=== PATIENT | female | born 1950 | race Caucasian/White ===

== ENCOUNTER → 2019-04-04 | Outpatient (CLI) | payer OTHER, MEDICARE | LOC: BMCIMAGING 13:20 | PROVIDERS: ATTEND Physician Assistant Medical | DX: R22.1 Localized swelling, mass and lump, neck (principal) ==

== ENCOUNTER → 2019-04-08 | Outpatient (CLI) | payer OTHER, MEDICARE ==
[~2019-04-08] MED LIST: IOPAMIDOL (ISOVUE-300) 100 ML BTL ONE
== END ==
LOC: FIMAGING 10:26
PROVIDERS: ATTEND Physician Assistant Medical
DX: K21.9 Gastro-esophageal reflux disease without esophagitis (principal); R22.1 Localized swelling, mass and lump, neck; J43.2 Centrilobular emphysema
CPT/HCPCS: 70487; 70491; Q9967; 82565-PO

== ENCOUNTER → 2019-05-11 | Outpatient (CLI) | payer OTHER, MEDICARE | LOC: FIMAGING 07:32 ==

== ENCOUNTER 2019-05-16 11:07 | Observation (INO) | payer OTHER, MEDICARE | END 2019-05-17 12:15 | disposition home or self-care (01) | LOC: FSGY 11:07 → F2N 18:09 ==